=== PATIENT | female | born 1955 | race Caucasian/White ===

== ENCOUNTER → 2017-06-07 | Outpatient (CLI) | payer BC ==
[~2017-06-07] VITALS: Ht 160 cm; Wt 92.7 kg
[~2017-06-07] MED LIST: ERGOCALCIF50000 UNIT PO
== END | disposition home or self-care (01) ==
LOC: AMB 06:52
PROC: 0DJD8ZZ Inspection of Lower Intestinal Tract, Via Natural or Artificial Opening Endoscopic (ICD-10-PCS; principal; 2017-06-07)
DX: Z12.11 Encounter for screening for malignant neoplasm of colon (principal); Z80.0 Family history of malignant neoplasm of digestive organs